=== PATIENT | female | born 1995 | race Caucasian/White ===

== ENCOUNTER 2020-08-11 09:49 | Inpatient (IN) ==
[2020-08-11] MEDS ORDERED: LORazepam 2 MG/4 ML VIAL IV STA (10:47)
[2020-08-11] MEDS ORDERED: KETOROLAC TROMETHAMINE 15 MG/ML VIAL IV STA (10:47)
[2020-08-11] MEDS ORDERED: cloNIDine HCL 0.1 MG TAB PO ONE (10:47)
[2020-08-11] MEDS ORDERED: PROMETHAZINE 12.5 MG/50.5 ML BAG IV STA (10:47)
[2020-08-11] MEDS ORDERED: SODIUM CHLORIDE 0.9% 1000ML 1,000 ML IV ONE (10:47)
--- NOTE | 2020-08-11 10:55 | Emergency Department Note ---
Impression & Plan Acute narcotic withdrawal, Anxiety, Hypokalemia, Vomiting ED Provider Note NAME: KATELYN HODGSON AGE: 25 SEX: F : 1995 ARRIVES VIA: Ambulance INFORMANT: [Patient] ED PROVIDER(S): [Teo East MD] CHIEF COMPLAINT: Withdrawal HISTORY OF PRESENT ILLNESS: The patient is a 25-year-old female who has a history of crack use and opiate use. She last used both on , 4 days ago. The patient states that 2 days ago, she began withdrawing. She has chest pain, she cannot sit still. She has abdominal pain, she is vomiting. She is anxious and upset. She has been to detox before and again is willing for detox. There has been no other concerns. She has not had cough. She has been in baseline health except for the withdrawal. She states that she decided to quit cold turkey. Of note, I was informed that the patient threatened to run out into traffic if not cared for for her symptoms. REVIEW OF SYSTEMS: See HPI for pertinent positives and negatives. A total of ten systems were reviewed and were otherwise negative. PMHx/PSHx: See Below SOCIAL HISTORY: See Below. PHYSICAL EXAM: GENERAL: Patient is in moderate distress, cannot sit still. Anxious. HEENT: No acute trauma, normocephalic atraumatic, mucous membranes moist, no na adrian congestion, no scleral icterus. NECK: No stridor, no adenopathy, no meningismus, trachea is midline. LUNGS: Clear to auscultation bilaterally, no wheeze, no rhonchi, breath sounds equal. HEART: Tachycardic, regular rhythm, no murmurs. ABDOMEN: Soft, nontender, bowel sounds positive, no hernias, no peritonitis. EXTREMITIES: No cyanosis or edema, full range of motion of all the joints without pain or difficulty, no signs for acute trauma. NEUROLOGIC: Oriented x 3, no acute motor or sensory deficits, no focal weakness. SKIN: No rash, no jaundice, no diaphoresis. Psychiatric: Cooperative, voluntary. Admits to withdrawing from what she thinks is opiates. Anxious. DIFFERENTIAL DIAGNOSIS: Mood disorder, infection, hypoglycemia, electrolyte abnormalities, cardiac sour margot, intracerebral event, toxicologic etiology, trauma, neurologic event, withdrawal, dehydration, as well as other pathologies. EMERGENCY DEPARTMENT COURSE/PROCEDURES: ECG: Indication was chest pain. ECG shows a normal sinus rhythm with some nonspecific ST changes diffusely. The rate is 60. The QTc is 434. There are no PVCs, no ST elevation. Continuous Cardiac Monitoring: An order was placed for continuous cardiac monitoring. The monitor shows a rate of 76 with normal sinus rhythm. Critical Care Note: I have personally spent 51 minutes of critical care time in the direct management of this patient. This includes bedside care, interpretation of diagnostic studies, and testing, discussion with consultants, patient, and family members, and other required patient management activities. This 51 minutes is in excess of all separately billable procedures. MEDICAL DECISION MAKING: There is a mild leukocytosis, this could be consistent with infection or just the stress of her presentation. There is a normal hemoglobin and platelet count. Renal panel testing shows a mild acidosis with a CO2 of 18. Potassium was low at 3. No kidney failure. No worrisome liver enzyme elevation. ECG showed a sinus rhythm with some nonspecific ST changes, no acute ischemia. Ca rdiac enzyme testing x1 is not consistent with acute cardiac injury. testing returned negative. The patient appeared to be in a euthyroid state. Urinalysis showed evidence for dehydration, some contamination was also noted. Aspirin and Tylenol levels were both nontoxic. Alcohol level was undetectable. Urine tox showed methadone, cocaine and marijuana. Chest x-ray does not show mediastinal widening, pneumonia or pneumothorax. The patient was quite uncomfortable and appeared to be going through narcotic withdrawal. She was aggressively managed. She received IV saline for hydr ation. She was given 1.5 L. She received IV Phenergan and IV Zofran. She required a second dose of IV Phenergan. She received IV Ativan 2 mg, a second dose of 1 mg IV was given. She was given IV Toradol for pain, IV Pepcid for stomach upset. She was ordered for oral clonidine and oral potassium however, she did vomit and I doubt truly received these medications. The patient is in need of a hospital stay. She is in narcotic withdrawal. She is vomiting. She is not tolerating oral intake. She has a low potassium. She is going to require symptomatic care and possibly rehab once stabilized. I spoke to the patient and case management. The on-call hospitalist has been consulted. 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 Non-Prescribed Medications: Crack / Cocaine, IV Drugs, Marijuana and Other Non-Prescribed Medications Comment: street fentanyl pills Preferred Language: Azeri marital status: Single Current Living Situation Comment: lives in [place] Feels Safe at Home: Yes Allergies Allergies Allergy/AdvReac Type Severity Reaction Status Date / Time No Known Allergies Allergy Unverified 02/08/16 17:08 Home Meds Home Medications Medication Instructions Recorded Confirmed BUPROPION HCL (WELLBUTRIN) PO QAM #0 tab 02/08/16 Clonazepam (Klonopin) 2 mg PO DAILY #0 tab 02/08/16 Results & Data (ED) Vital Signs Vital Signs - 24 hr 08/11/20 09:52 08/11/20 12:35 08/11/20 13:39 Temperature 36.9 C Temperature Source Temporal Artery Scan Pulse Rate 76 Pulse Rate [Apical] 70 68 Pulse Rhythm [Apical] Regular Respiratory Rate 18 16 16 Respiratory Effort / Characteristics Non-Labored Spontaneous Respiratory Depth Normal Blood Pressure [Left Arm] 89/50 L 102/56 L Blood Pressure Mean [Left Arm] 63 71 Blood Pressure Position [Left Arm] Left Lateral Pulse Oximetry 97 98 96 Oxygen Delivery Method Room Air Room Air Sepsis Recent Fever Within 48 Hours No Sepsis New/Unexplained Change in Mental Status N/A Sepsis Action Taken by Nursing No Action Required Home Medications Current Medication List: was personally reviewed by me Laboratory Data Attestation: I reviewed the patient's lab results. Result diagrams: 08/11/20 11:13 04/08/21 11:13 Lab Results 08/11/20 08/11/20 08/11/20 Range/Units 11:13 11:13 11:13 WBC 12.44 H (4.8-10.8) K/uL RBC 5.09 (4.2-5.4) M/uL Hgb 15.7 (12.0-16.0) g/dL Hct 43.6 (37-47) % MCV 85.7 (80-100) fL MCH 30.8 (25-34) pg MCHC 36.0 (32-36) g/dL RDW Std Deviation 39.7 (36.4-46.3) fL RDW Coeff of Liliana 12.7 (11.5-14.5) % Plt Count 297 (130-400) K/uL MPV 9.8 (7.4-10.4) fL Immature Gran % (Auto) 0.3 % Neut % (Auto) 88.3 % Lymph % (Auto) 9.0 % [place] % (Auto) 2.3 % Eos % (Auto) 0.0 % Baso % (Auto) 0.1 % Neut # (Auto) 10.99 H (1.4-6.5) K/uL Lymph # (Auto) 1.12 L (1.2-3.4) K/uL [place] # (Auto) 0.28 (0.11-0.59) K/uL Eos # (Auto) 0.00 (0-0.5) K/uL Baso # (Auto) 0.01 (0-0.2) K/uL Immature Gran # (Auto) 0.04 H (0.00-0.02) K/uL Sodium 139 (136-145) mmol/L Potassium 3.0 L (3.5-5.1) mmol/L Chloride 110 H (98-107) mmol/L Carbon Dioxide 18 L (21-32) mmol/L Anion Gap 11.0 (3-11) BUN 9 (7-18) mg/dl Creatinine 0.69 (0.6-1.2) mg/dl Est Cr Clr Drug Dosing 84.5 ml/min Est GFR ( Amer) 141.2 Est GFR (Non-Af Amer) 121.8 BUN/Creatinine Ratio 13.6 (10-20) Glucose 95 (70-99) mg/dl Calcium 9.2 (8.5-10.1) mg/dl Total Bilirubin 0.6 (0.2-1) mg/dl AST 14 L (15-37) U/L ALT 19 (12-78) U/L Alkaline Phosphatase 73 (45-117) U/L Total Protein 7.7 (6.4-8.2) gm/dl Albumin 4.5 (3.4-5.0) gm/dl Globulin 3.2 (2.5-4.0) gm/dl Albumin/Globulin Ratio 1.4 (0.9-2) TSH 0.338 (0.300-4.500) uIu/ml HCG, Qual Negative (Negative) Specimen Hemolysis Urine Color Urine Appearance (Clear) Urine pH (4.5-7.5) Ur Specific [place] (1.000-1.030) Urine Protein (Negative) Urine Glucose (UA) (Negative) Urine Ketones (Negative) Urine Blood (Negative) Urine Nitrite (Negative) Urine Bilirubin (Negative) Urine Urobilinogen (Negative) Ur Leukocyte Esterase (Negative) Urine WBC (Auto) (0-5) /hpf Urine RBC (Auto) (0-4) /hpf U Hyaline Cast (Auto) (0-5) /lpf U Epithel Cells (Auto) (0-5) /lpf Urine Bacteria (Auto) (Negative) Salicylates (2.8-20) mg/dl Urine Opiates Screen (Neg) Ur Methadone, Qual (Neg) Acetaminophen (10-30) ug/ml Urine Barbiturates (Neg) Ur Phencyclidine (PCP) (Neg) U Amphetamin/Meth Scrn (Neg) MDMA (Ecstasy) Screen (Neg) U Benzodiazepines Scrn (Neg) Ur Cocaine Metabolite (Neg) U Marijuana (THC) Screen (Neg) Ethyl Alcohol mg/dL (0-3) mg/dl COVID-19 Eval Order SARS-CoV-2 (PCR) (Negative) Influenza Type A (PCR) (Neg) Influenza Type B (PCR) (Neg) RSV (RT-PCR) (Neg) 08/11/20 08/11/20 08/11/20 Range/Units 11:13 11:14 11:57 WBC (4.8-10.8) K/uL RBC (4.2-5.4) M/uL Hgb (12.0-16.0) g/dL Hct (37-47) % MCV (80-100) fL MCH (25-34) pg MCHC (32-36) g/dL RDW Std Deviation (36.4-46.3) fL RDW Coeff of Liliana (11.5-14.5) % Plt Count (130-400) K/uL MPV (7.4-10.4) fL Immature Gran % (Auto) % Neut % (Auto) % Lymph % (Auto) % [place] % (Auto) % Eos % (Auto) % Baso % (Auto) % Neut # (Auto) (1.4-6.5) K/uL Lymph # (Auto) (1.2-3.4) K/uL [place] # (Auto) (0.11-0.59) K/uL Eos # (Auto) (0-0.5) K/uL Baso # (Auto) (0-0.2) K/uL Immature Gran # (Auto) (0.00-0.02) K/uL Sodium (136-145) mmol/L Potassium (3.5-5.1) mmol/L Chloride (98-107) mmol/L Carbon Dioxide (21-32) mmol/L Anion Gap (3-11) BUN (7-18) mg/dl Creatinine (0.6-1.2) mg/dl Est Cr Clr Drug Dosing ml/min Est GFR ( Amer) Est GFR (Non-Af Amer) BUN/Creatinine Ratio (10-20) Glucose (70-99) mg/dl Calcium (8.5-10.1) mg/dl Total Bilirubin (0.2-1) mg/dl AST (15-37) U/L ALT (12-78) U/L Alkaline Phosphatase (45-117) U/L Total Protein (6.4-8.2) gm/dl Albumin (3.4-5.0) gm/dl Globulin (2.5-4.0) gm/dl Albumin/Globulin Ratio (0.9-2) TSH (0.300-4.500) uIu/ml HCG, Qual (Negative) Specimen Hemolysis Urine Color Urine Appearance (Clear) Urine pH (4.5-7.5) Ur Specific [place] (1.000-1.030) Urine Protein (Negative) Urine Glucose (UA) (Negative) Urine Ketones (Negative) Urine Blood (Negative) Urine Nitrite (Negative) Urine Bilirubin (Negative) Urine Urobilinogen (Negative) Ur Leukocyte Esterase (Negative) Urine WBC (Auto) (0-5) /hpf Urine RBC (Auto) (0-4) /hpf U Hyaline Cast (Auto) (0-5) /lpf U Epithel Cells (Auto) (0-5) /lpf Urine Bacteria (Auto) (Negative) Salicylates 4.6 (2.8-20) mg/dl Urine Opiates Screen (Neg) Ur Methadone, Qual (Neg) Acetaminophen 11 (10-30) ug/ml Urine Barbiturates (Neg) Ur Phencyclidine (PCP) (Neg) U Amphetamin/Meth Scrn (Neg) MDMA (Ecstasy) Screen (Neg) U Benzodiazepines Scrn (Neg) Ur Cocaine Metabolite (Neg) U Marijuana (THC) Screen (Neg) Ethyl Alcohol mg/dL < 3.0 (0-3) mg/dl COVID-19 Eval Order CovFluRsv at [facility] SARS-CoV-2 (PCR) (Negative) Influenza Type A (PCR) (Neg) Influenza Type B (PCR) (Neg) RSV (RT-PCR) (Neg) 08/11/20 08/11/20 08/11/20 Range/Units 11:57 14:07 14:07 WBC (4.8-10.8) K/uL RBC (4.2-5.4) M/uL Hgb (12.0-16.0) g/dL Hct (37-47) % MCV (80-100) fL MCH (25-34) pg MCHC (32-36) g/dL RDW Std Deviation (36.4-46.3) fL RDW Coeff of Liliana (11.5-14.5) % Plt Count (130-400) K/uL MPV (7.4-10.4) fL Immature Gran % (Auto) % Neut % (Auto) % Lymph % (Auto) % [place] % (Auto) % Eos % (Auto) % Baso % (Auto) % Neut # (Auto) (1.4-6.5) K/uL Lymph # (Auto) (1.2-3.4) K/uL [place] # (Auto) (0.11-0.59) K/uL Eos # (Auto) (0-0.5) K/uL Baso # (Auto) (0-0.2) K/uL Immature Gran # (Auto) (0.00-0.02) K/uL Sodium (136-145) mmol/L Potassium (3.5-5.1) mmol/L Chloride (98-107) mmol/L Carbon Dioxide (21-32) mmol/L Anion Gap (3-11) BUN (7-18) mg/dl Creatinine (0.6-1.2) mg/dl Est Cr Clr Drug Dosing ml/min Est GFR ( Amer) Est GFR (Non-Af Amer) BUN/Creatinine Ratio (10-20) Glucose (70-99) mg/dl Calcium (8.5-10.1) mg/dl Total Bilirubin (0.2-1) mg/dl AST (15-37) U/L ALT (12-78) U/L Alkaline Phosphatase (45-117) U/L Total Protein (6.4-8.2) gm/dl Albumin (3.4-5.0) gm/dl Globulin (2.5-4.0) gm/dl Albumin/Globulin Ratio (0.9-2) TSH (0.300-4.500) uIu/ml HCG, Qual (Negative) Specimen Hemolysis Urine Color Yellow Urine Appearance Cloudy A (Clear) Urine pH 5.5 (4.5-7.5) Ur Specific [place] 1.035 H (1.000-1.030) Urine Protein 1+ H (Negative) Urine Glucose (UA) Negative (Negative) Urine Ketones 4+ H (Negative) Urine Blood 1+ H (Negative) Urine Nitrite Negative (Negative) Urine Bilirubin Negative (Negative) Urine Urobilinogen Negative (Negative) Ur Leukocyte Esterase 2+ H (Negative) Urine WBC (Auto) >30 H (0-5) /hpf Urine RBC (Auto) 5-10 H (0-4) /hpf U Hyaline Cast (Auto) 5-10 H (0-5) /lpf U Epithel Cells (Auto) >30 H (0-5) /lpf Urine Bacteria (Auto) 2+ H (Negative) Salicylates (2.8-20) mg/dl Urine Opiates Screen Neg (Neg) Ur Methadone, Qual Pos H (Neg) Acetaminophen (10-30) ug/ml Urine Barbiturates Neg (Neg) Ur Phencyclidine (PCP) Neg (Neg) U Amphetamin/Meth Scrn Neg (Neg) MDMA (Ecstasy) Screen Neg (Neg) U Benzodiazepines Scrn Neg (Neg) Ur Cocaine Metabolite Pos H (Neg) U Marijuana (THC) Screen Pos H (Neg) Ethyl Alcohol mg/dL (0-3) mg/dl COVID-19 Eval Order SARS-CoV-2 (PCR) NEGATIVE (Negative) Influenza Type A (PCR) Negative (Neg) Influenza Type B (PCR) Negative (Neg) RSV (RT-PCR) Negative (Neg) Administered Medications Discontinued Medications Clonidine HCl (Clonidine Hcl 0.1 Mg Tab) 0.2 mg PO NOW ONE Stop: 08/11/20 10:48 Last Admin: 08/11/20 11:30 Dose: 0.2 mg Documented by: [id number] Promethazine HCl (Phenergan) 12.5 mg in 50.5 mls @ 202 mls/hr IV NOW STA Stop: 08/11/20 11:01 Last Infusion: 08/11/20 11:52 Dose: 0 mls/hr Documented by: [id number] Admin: 08/11/20 11:30 Dose: 202 mls/hr Documented by: [id number] Lorazepam (Ativan) 2 mg in 4 mls @ 4 mls/min IV NOW STA Stop: 08/11/20 10:48 Last Admin: 08/11/20 11:30 Dose: 4 mls/min Documented by: [id number] Sodium Chloride (Nss 1000ml) 1,000 mls @ 999 mls/hr IV .Q1H1M ONE Stop: 08/11/20 11:47 Last Infusion: 08/11/20 12:46 Dose: 0 mls/hr Documented by: [id number] Admin: 08/11/20 11:30 Dose: 999 mls/hr Documented by: [id number] Sodium Chloride (Nss 1000ml) 500 mls @ 999 mls/hr IV .Q31M ONE Stop: 08/11/20 12:47 Last Infusion: 08/11/20 12:55 Dose: 0 mls/hr Documented by: [id number] Admin: 08/11/20 12:21 Dose: 999 mls/hr Documented by: [id number] Promethazine HCl (Phenergan) 6.25 mg in 50.25 mls @ 201 mls/hr IV NOW STA Stop: 08/11/20 12:40 Last Infusion: 08/11/20 12:46 Dose: 0 mls/hr Documented by: [id number] Admin: 08/11/20 12:30 Dose: 201 mls/hr Documented by: [id number] Potassium Chloride (K Mani / Wtr) 10 meq in 100 mls @ 100 mls/hr IV ONE ONE Stop: 08/11/20 13:25 Last Infusion: 08/11/20 14:18 Dose: 0 mls/hr Documented by: [id number] Infusion: 08/11/20 13:16 Dose: 50 mls/hr Documented by: [id number] Admin: 08/11/20 12:46 Dose: 100 mls/hr Documented by: [id number] Ketorolac Tromethamine (Ketorolac Tromethamine 15 Mg/Ml Vial) 15 mg IV NOW STA Stop: 08/11/20 10:48 Last Admin: 08/11/20 11:30 Dose: 15 mg Documented by: [id number] Methadone HCl (Methadone Hcl 10 Mg Tab) 100 mg PO NOW STA Stop: 08/11/20 15:15 Last Admin: 08/11/20 16:07 Dose: 100 mg Documented by: [id number] Ondansetron HCl (Ondansetron Inj 2 Mg/Ml 2 Ml Vial) 4 mg IV NOW STA Stop: 08/11/20 12:27 Last Admin: 08/11/20 12:29 Dose: 4 mg Documented by: [id number] Potassium Chloride (Potassium Chloride Crtab 20 Meq Tabcr) 40 meq PO NOW STA Stop: 08/11/20 11:57 Last Admin: 08/11/20 12:07 Dose: 40 meq Documented by: [id number] Imaging Data Radiologist's Impression: Chest X-Ray 08/11/20 10:50 XR chest 1V portable CLINICAL HISTORY: Chest pain. COMPARISON STUDY: No previous studies for comparison. FINDINGS: Lung volumes are normal. Lungs are clear. There is no pneumothorax or pleural effusion. Cardiac size is normal. Mediastinal contours are normal. There is no evidence for pulmonary edema. IMPRESSION: No acute cardiopulmonary findings. ACT 112: Negative or not required by law. Electronically signed by: Richard Hallman M.D. 08/11/2020 11:21 AM Discharge Plan Visit Data Chief Complaint: Detox Request ED Provider: Teo East Discharge Problem: Acute narcotic withdrawal, Anxiety, Hypokalemia, Vomiting Patient Disposition: Admitted As Inpatient Condition: Fair Discharge Problem: Vomiting Qualifiers: Vomiting type: unspecified Vomiting Intractability: non-intractable Nausea presence: with nausea Qualified Code(s): R11.2 - Nausea with vomiting, unspecified
--- NOTE | 2020-08-11 11:23 | XRay Report ---
XR chest 1V portable CLINICAL HISTORY: Chest pain. COMPARISON STUDY: No previous studies for comparison. FINDINGS: Lung volumes are normal. Lungs are clear. There is no pneumothorax or pleural effusion. Car diac size is normal. Mediastinal contours are normal. There is no evidence for pulmonary edema. IMPRESSION: No acute cardiopulmonary findings. ACT 112: Negative or not required by law. Electronically signed by: Richard Hallman M.D. 08/11/2020 11:21 AM
[2020-08-11 11:26] LABS: Basophils # (auto) 0.01 K/uL (0-0.2); Basophils % (auto) 0.1 %; Hematocrit (blood only) 43.6 % (37-47); Hemoglobin 15.7 g/dL (12.0-16.0); Immature Granulocytes # (auto) 0.04 K/uL (0.00-0.02); Immature Granulocytes % (auto) 0.3 %; Lymphocytes # (auto) 1.12 K/uL (1.2-3.4); Mean Corpuscular Hemoglobin 30.8 pg (25-34); Mean Corpuscular Volume 85.7 fL (80-100); Mean Platelet Volume 9.8 fL (7.4-10.4); Monocytes # (auto) 0.28 K/uL (0.11-0.59); Monocytes % (auto) 2.3 %; Neutrophils # (auto) 10.99 K/uL (1.4-6.5); Neutrophils % (auto) 88.3 %; Platelet Count 297 K/uL (130-400); RDW Coefficient of Variation 12.7 % (11.5-14.5); RDW Standard Deviation 39.7 fL (36.4-46.3); Red Blood Count 5.09 M/uL (4.2-5.4); White Blood Count 12.44 K/uL (4.8-10.8)
[2020-08-11 11:47] LABS: Pregnancy Test, Serum Negative (Negative)
[2020-08-11 11:54] LABS: Albumin Level 4.5 gm/dl (3.4-5.0); BUN Creatinine Ratio 13.6 (10-20); Calcium 9.2 mg/dl (8.5-10.1); Creatinine Clr Calc Pharmacy 84.5 ml/min; Est GFR (African American) 141.2; Est GFR (Non-African American) 121.8
[2020-08-11 11:56] LABS: Salicylate 4.6 mg/dl (2.8-20)
[2020-08-11] MEDS ORDERED: POTASSIUM CHLORIDE CRTAB 20 MEQ TABCR PO STA (11:56)
[2020-08-11 12:00] LABS: Albumin Globulin Ratio 1.4 (0.9-2); Bilirubin,Total 0.6 mg/dl (0.2-1); Globulin 3.2 gm/dl (2.5-4.0); Thyroid Stimulating Hormone 0.338 uIu/ml (0.300-4.500); Total Protein 7.7 gm/dl (6.4-8.2)
[2020-08-11] MEDS ORDERED: SODIUM CHLORIDE 0.9% 1000ML 500 ML IV ONE (12:17)
[2020-08-11] MEDS ORDERED: POTASSIUM CHLORIDE / WTR 10 MEQ/100 ML PLCT IV ONE (12:26)
[2020-08-11] MEDS ORDERED: ONDANSETRON INJ 2 MG/ML 2 ML VIAL IV STA (12:26)
[2020-08-11] MEDS ORDERED: PROMETHAZINE 6.25 MG/50.25 ML BAG IV STA (12:26)
[2020-08-11 12:55] LABS: Influenza A virus by PCR Negative (Neg); Influenza B virus by PCR Negative (Neg); RSV by PCR Negative (Neg); SARS CoV2 RNA(COVID-19) InHosp NEGATIVE (Negative)
--- NOTE | 2020-08-11 13:27 | History & Physical Report ---
Date of Service August 11, 2020 Assessment & Plan (1) Narcotic withdrawal: Patient [facility] with [facility] called Felice Quintero MD ([phone]). I called and spoke with the office; they confirmed that the patient began methadone Rx in 10/2019. She indeed is on 100mg/day. On 08/04/20 she received 100mg in the clinic. She was then given 4 doses of 100mg each to take for the following 4 days. She stopped her methadone this past Saturday. During the visit she stated she wished to go back on the methadone and stop her withdrawal. Methadone 100mg PO x 1 ordered shortly after my assessment. Then will continue 100mg daily starting in am. I spoke with our on-call painter who recommended the above. It will take several days for all withdrawal symptoms to resolve. In meantime - loperamide prn diarrhea, anti-emetics, clonidine prn, etc. She is also purchasing fentanyl off the streets in [place]. (2) Methadone maintenance therapy patient: see above (3) Fentanyl dependence: Illicit fentanyl use - purchasing fentanyl off the street and taking daily. She previously misused oxycodone several years ago when she had significant pain related to her endometriosis. (4) Cocaine abuse: Crack use, daily. Last use was this past Saturday. She previously used IV drugs up until September 2019. IV heroin? IV cocaine? Other? (5) History of marijuana use: Tox screen here + for THC along with cocaine (6) Depression: In light of suicidal ideation will place on suicide watch and 1:1. Psych consult requested. I called and spoke with psych liaison regarding the patient. Hold wellbutrin - dose uncertain. Cont klonipin to avoid withdrawal. (7) Endometriosis: s/p multiple laparoscopies in the past. Used narcotics for pelvic pain related to endometriosis several years ago. Urine HCG neg. LMP several days ago. (8) Anxiety: Severe. Received ativan in ER prior to my arrival. Place her back on her klonipin daily. (9) Chest pain: EKG is concerning given her cocaine abuse. She could be having ischemia from the cocaine. Troponin checked and negative. Will obtain echo - r/o depressed EF, wall motion abnormalities, etc. Place on telemetry. (10) Hypokalemia: Replaced in ER. Repeat BMP am. (11) Abnormal EKG: Diffuse ST segment flattening. See "Chest pain" above. (12) Hx of intravenous drug use in remission: None since 09/2019 per patient. History of Present Illness Chief Complaint: narcotic withdrawal Primary Care Provider: ARTUR PCP 25yo female with h/o previous IV drug abuse, stopped in September 2019; methadone maintenance with 100mg/day since September 2019 - follows with [facility] in [place]; daily crack-cocaine abuse; daily fentanyl use obtained from the street; anxiety; depression; and endometriosis who presents with withdrawal symptoms starting Saturday. Patient had received numerous medications for her symptoms upon ED arrival and she was very lethargic making it difficult to get history. However, she was able to tell me that her last cocaine use was Saturday night, and last methadone/fentanyl use was Saturday on . She said that she has been depressed and realized that she would ultimately from the drug abuse and therefore decided to stop everything. Since Saturday she has had nausea, vomiting, poor appetite, chills/goose bumps/feeling cold, myalgias, restlessness, agitation, diarrhea, and anxiety. She states she wants to stop the street drugs but wishes to continue the methadone. States that suboxone "made her sick" and doesn't want to go on this. Started abusing narcotics when she was being treated for her severe endometriosis in the past. LMP - 3 days ago. Lastly, I asked Teresita if she has ever been diagnosed with bipolar disorder or other mental health problems. She reported diagnoses of depression & anxiety. When asked if she has had suicidal ideation she responded yes. Asked if those suicidal thoughts were recent again she responded yes. She would not elaborate further on the suicidal thoughts. Allergies Allergy/AdvReac Type Severity Reaction Status Date / Time No Known Allergies Allergy Unverified 02/08/16 17:08 Home Medications Medication Instructions Recorded Confirmed Type BUPROPION HCL (WELLBUTRIN) PO QAM #0 tab 02/08/16 History Clonazepam (Klonopin) 2 mg PO DAILY #0 tab 02/08/16 History Past Med/Surg History Medical History Anxiety Cocaine abuse Depression Endometriosis Fentanyl dependence History of marijuana use Hx of intravenous drug use in remission Methadone maintenance therapy patient Narcotic withdrawal Surgical History (Updated 08/11/20 @ 14:08 by Emery Larkin) History of laparoscopy x 4 for endometriosis Family History (Updated 08/11/20 @ 14:09 by Emery Larkin) Other Family history unknown Social History Smoking Status: Current every day smoker Tobacco Type: Cigarettes packs per day: 1; Do You Dip or Chew Tobacco: No; Tobacco Cessation Education Requested by Patient: No Hx Alcohol Use: No Hx Substance Use: Yes Prescribed Medications: Former Misuse of Rx Meds, Opiates and Other Prescribed Medications Comment: methadone, 100mg/day - [facility] Methadone [facility] - [place]. Non-Prescribed Medications: Crack / Cocaine, IV Drugs, Marijuana and Other Non-Prescribed Medications Comment: street fentanyl pills Last Used Substance: Days (ago) Last Used Substance Other:: 08/07/2020 Substance Use Type Other:: fentanyl Preferred Language: [place] Leone[place] Dock Worker Required: No Beliefs That Will Affect Care: None marital status: Single Current Living Situation: Parent Current Living Situation Comment: lives in [place] Other Information That Helps Us Care for You: No Feels Safe at Home: Yes Safety Concerns: Feels Safe At This Time Assistive Devices: Glasses Review of Systems Constitutional: + chills, + sweats, + body aches, + fatigue and + anorexia; no fever Eyes: no worsening vision Ear, Nose, Mouth, Throat: no sore throat Respiratory: no dyspnea Cardiovascular: + chest pain (occured today and several days ago ) Gastrointestinal: + abdominal pain, + nausea, + vomiting and + diarrhea/loose stools Genitourinary: no dysuria Musculoskeletal: + myalgia and + body aches Integumentary: no rash Neurologic: + tingling Psychiatric: + depression and + anxiety Endocrine: denies diabetes Physical Exam Constitutional: + ill appearing and + altered mental status (very sleepy, difficult to wake her); no acute distress Eyes: PERRL (pupils about 3-4mm in size) ENMT: Mouth: + dry oral mucous membranes Neck: trachea midline, no thyromegaly Respiratory: normal respiratory effort, lungs clear to auscultation Cardiovascular: Rate/Rhythm: regular rate and regular rhythm Heart Sounds: normal S1 and normal S2; no murmur Vessels: posterior tibial pulses present and dorsalis pedis pulses present; no JVD Extremities: no edema Gastrointestinal (Abdomen): normal bowel sounds, soft, nontender, no hepatospl enomegaly Musculoskeletal: Extremities: no clubbing Skin: very sweaty/diaphoresis; multiple tattoos Neurologic: DTRs 3+ b/l; restless, constantly shifting in bed; no motor deficits Psychiatric: Orientation: + not alert (sleepy, sometimes takes calling her name 2-3x's to wake up ) Lymphatic: no cervical lymphadenopathy Results & Data Results & Data ([facility]) Vital Signs (Past 12 Hours) Vital Signs Temp Pulse Pulse Resp BP Pulse Ox 08/11/20 12:35 70 16 89/50 L 98 08/11/20 09:52 36.9 C 76 18 97 Laboratory Results Laboratory Results - last 24 hr 08/11/20 08/11/20 08/11/20 11:13 11:13 11:13 WBC 12.44 H RBC 5.09 Hgb 15.7 Hct 43.6 MCV 85.7 MCH 30.8 MCHC 36.0 RDW Std Deviation 39.7 RDW Coeff of Liliana 12.7 Plt Count 297 MPV 9.8 Immature Gran % (Auto) 0.3 Neut % (Auto) 88.3 Lymph % (Auto) 9.0 [place] % (Auto) 2.3 Eos % (Auto) 0.0 Baso % (Auto) 0.1 Neut # (Auto) 10.99 H Lymph # (Auto) 1.12 L [place] # (Auto) 0.28 Eos # (Auto) 0.00 Baso # (Auto) 0.01 Immature Gran # (Auto) 0.04 H Sodium 139 Potassium 3.0 L Chloride 110 H Carbon Dioxide 18 L Anion Gap 11.0 BUN 9 Creatinine 0.69 Est Cr Clr Drug Dosing 84.5 Est GFR ( Amer) 141.2 Est GFR (Non-Af Amer) 121.8 BUN/Creatinine Ratio 13.6 Glucose 95 Calcium 9.2 Total Bilirubin 0.6 AST 14 L ALT 19 Alkaline Phosphatase 73 Total Protein 7.7 Albumin 4.5 Globulin 3.2 Albumin/Globulin Ratio 1.4 TSH 0.338 HCG, Qual Negative Specimen Hemolysis Urine Color Urine Appearance Urine pH Ur Specific [place] Urine Protein Urine Glucose (UA) Urine Ketones Urine Blood Urine Nitrite Urine Bilirubin Urine Urobilinogen Ur Leukocyte Esterase Salicylates Urine Opiates Screen Ur Methadone, Qual Acetaminophen Urine Barbiturates Ur Phencyclidine (PCP) U Amphetamin/Meth Scrn MDMA (Ecstasy) Screen U Benzodiazepines Scrn Ur Cocaine Metabolite U Marijuana (THC) Screen Ethyl Alcohol mg/dL COVID-19 Eval Order SARS-CoV-2 (PCR) Influenza Type A (PCR) Influenza Type B (PCR) RSV (RT-PCR) 08/11/20 08/11/20 08/11/20 11:13 11:14 11:57 WBC RBC Hgb Hct MCV MCH MCHC RDW Std Deviation RDW Coeff of Liliana Plt Count MPV Immature Gran % (Auto) Neut % (Auto) Lymph % (Auto) [place] % (Auto) Eos % (Auto) Baso % (Auto) Neut # (Auto) Lymph # (Auto) [place] # (Auto) Eos # (Auto) Baso # (Auto) Immature Gran # (Auto) Sodium Potassium Chloride Carbon Dioxide Anion Gap BUN Creatinine Est Cr Clr Drug Dosing Est GFR ( Amer) Est GFR (Non-Af Amer) BUN/Creatinine Ratio Glucose Calcium Total Bilirubin AST ALT Alkaline Phosphatase Total Protein Albumin Globulin Albumin/Globulin Ratio TSH HCG, Qual Specimen Hemolysis Urine Color Urine Appearance Urine pH Ur Specific [place] Urine Protein Urine Glucose (UA) Urine Ketones Urine Blood Urine Nitrite Urine Bilirubin Urine Urobilinogen Ur Leukocyte Esterase Salicylates 4.6 Urine Opiates Screen Ur Methadone, Qual Acetaminophen 11 Urine Barbiturates Ur Phencyclidine (PCP) U Amphetamin/Meth Scrn MDMA (Ecstasy) Screen U Benzodiazepines Scrn Ur Cocaine Metabolite U Marijuana (THC) Screen Ethyl Alcohol mg/dL < 3.0 COVID-19 Eval Order CovFluRsv at [facility] SARS-CoV-2 (PCR) Influenza Type A (PCR) Influenza Type B (PCR) RSV (RT-PCR) 08/11/20 08/11/20 08/11/20 11:57 14:07 14:07 WBC RBC Hgb Hct MCV MCH MCHC RDW Std Deviation RDW Coeff of Liliana Plt Count MPV Immature Gran % (Auto) Neut % (Auto) Lymph % (Auto) [place] % (Auto) Eos % (Auto) Baso % (Auto) Neut # (Auto) Lymph # (Auto) [place] # (Auto) Eos # (Auto) Baso # (Auto) Immature Gran # (Auto) Sodium Potassium Chloride Carbon Dioxide Anion Gap BUN Creatinine Est Cr Clr Drug Dosing Est GFR ( Amer) Est GFR (Non-Af Amer) BUN/Creatinine Ratio Glucose Calcium Total Bilirubin AST ALT Alkaline Phosphatase Total Protein Albumin Globulin Albumin/Globulin Ratio TSH HCG, Qual Specimen Hemolysis Urine Color Pending Urine Appearance Pending Urine pH Pending Ur Specific [place] Pending Urine Protein Pending Urine Glucose (UA) Pending Urine Ketones Pending Urine Blood Pending Urine Nitrite Pending Urine Bilirubin Pending Urine Urobilinogen Pending Ur Leukocyte Esterase Pending Salicylates Urine Opiates Screen Pending Ur Methadone, Qual Pending Acetaminophen Urine Barbiturates Pending Ur Phencyclidine (PCP) Pending U Amphetamin/Meth Scrn Pending MDMA (Ecstasy) Screen Pending U Benzodiazepines Scrn Pending Ur Cocaine Metabolite Pending U Marijuana (THC) Screen Pending Ethyl Alcohol mg/dL COVID-19 Eval Order SARS-CoV-2 (PCR) NEGATIVE Influenza Type A (PCR) Negative Influenza Type B (PCR) Negative RSV (RT-PCR) Negative Diagnostic Findings Chest X-Ray 08/11/20 10:50 XR chest 1V portable CLINICAL HISTORY: Chest pain. COMPARISON STUDY: No previous studies for comparison. FINDINGS: Lung volumes are normal. Lungs are clear. There is no pneumothorax or pleural effusion. Cardiac size is normal. Mediastinal contours are normal. There is no evidence for pulmonary edema. IMPRESSION: No acute cardiopulmonary findings. ACT 112: Negative or not required by law. Electronically signed by: Richard Hallman M.D. 08/11/2020 11:21 AM EKG - NSR, diffuse ST segment flattening or decreased amplitude in inferior leads and anterior leads; no prior for comparison PG Care Time/CCT Total # of Minutes Spent Total Time Spent with Patient: Total time spent is greater than 50% in c oordination of care (as documented) at patient's floor/unit and/or counseling patient: Coding Level of Care Code 93804 Initial Inpt Care Lvl 3 Diagnoses Narcotic withdrawal F11.23 Methadone maintenance therapy patient F11.20 Fentanyl dependence F11.20 Cocaine abuse F14.10 History of marijuana use Z87.898 Depression F32.89 Depression Type: other depression Endometriosis N80.9 Anxiety F41.9 Chest pain R07.9 Chest pain type: unspecified Hypokalemia E87.6 Abnormal EKG R94.31 Hx of intravenous drug use in remission Z87.898 (1) Depression Depression Type: other depression Qualified Code(s): F32.89 - Other specified depressive episodes (2) Chest pain Chest pain type: unspecified Qualified Code(s): R07.9 - Chest pain, unspecified
[2020-08-11] MEDS ORDERED: METHADONE HCL 5 MG TAB PO STA (14:28)
[2020-08-11 14:36] LABS: Amphetamines+Metham, Urine Neg (Neg); Barbiturates, Urine Neg (Neg); Benzodiazepine, Urine Neg (Neg); Cocaine, Urine Pos (Neg); MDMA (Ecstacy), Urine Neg (Neg); Methadone, Urine Pos (Neg); Opiate, Urine Neg (Neg); Phencyclidine, Urine Neg (Neg)
[2020-08-11 14:40] LABS: Appearance Urine Cloudy (Clear); Bacteria Urine Automated 2+ (Negative); Bilirubin Urine Negative (Negative); Blood Urine 1+ (Negative); Color Urine Yellow; Epithelial Cell Urine Auto >30 /lpf (0-5); Glucose Urine UA Negative (Negative); Ketones Urine 4+ (Negative); Leukocyte Esterase Urine 2+ (Negative); Nitrite Urine Negative (Negative); Protein Urine 1+ (Negative); Specific Gravity Urine 1.035 (1.000-1.030); Urobilinogen Urine Negative (Negative); WBC Urine Automated >30 /hpf (0-5); pH Urine 5.5 (4.5-7.5)
[2020-08-11 15:03] LABS: Troponin I < 0.015 ng/ml (0-0.045)
[2020-08-11] MEDS ORDERED: METHADONE HCL 10 MG TAB PO STA (15:14)
--- NOTE | 2020-08-11 16:01 | Electrocardiogram Report ---
Test Reason : Blood Pressure : / mmHG Vent. Rate : 060 BPM Atrial Rate : 060 BPM P-R Int : 134 ms QRS Dur : 088 ms QT Int : 434 ms P-R-T Axes : 038 032 024 degrees QTc Int : 434 ms Normal sinus rhythm Nonspecific T wave abnormality Abnormal ECG No previous ECGs available Confirmed by Philip Lane ([id number]) on 08/11/2020 4:01:31 PM Referred By: REFERRED SELF Confirmed By:Philip Lane
[2020-08-11] MEDS ORDERED: FAMOTIDINE 20MG IV PUSH 20 MG/5 ML SYR IV STA (18:12)
[2020-08-11] MEDS ORDERED: LORazepam 1 MG/2 ML VIAL IV STA (18:12)
[2020-08-11] MEDS: NICOTINE 21 MG/24 HR TDSY TD SCH (19:25)
[2020-08-11] MEDS ORDERED: LOPERAMIDE HCL 2 MG CAP PO PRN (22:53)
[2020-08-11] MEDS ORDERED: ACETAMINOPHEN 325 MG TAB PO PRN (22:53)
[2020-08-11] MEDS ORDERED: ONDANSETRON INJ 2 MG/ML 2 ML VIAL IV PRN (22:53)
[2020-08-11] MEDS ORDERED: cefTRIAXone SODIUM 1,000 MG in DEXTROSE 5% 50 ML IV SCH (23:00)
[2020-08-11] MEDS ORDERED: D5NSS + 20MEQ KCL 20 MEQ/1,000 ML BAG IV SCH (23:00)
[2020-08-12] MEDS ORDERED: LORazepam 1 MG/2 ML VIAL IV PRN (00:11)
[2020-08-12] MEDS ORDERED: KETOROLAC TROMETHAMINE 15 MG/ML VIAL IV PRN (00:35)
[2020-08-12] MEDS ORDERED: traZODone HCL 50 MG TAB PO PRN (00:55)
[2020-08-12 06:53] LABS: BUN Creatinine Ratio 9.5 (10-20); Calcium 8.2 mg/dl (8.5-10.1); Creatinine Clr Calc Pharmacy 97.5 ml/min; Est GFR (African American) 146.3; Est GFR (Non-African American) 126.2; Potassium 3.5 mmol/L (3.5-5.1)
[2020-08-12] MEDS: NICOTINE 21 MG/24 HR TDSY TD SCH (08:24)
[2020-08-12] MEDS ORDERED: METHADONE HCL 10 MG TAB PO SCH (09:00)
[2020-08-12] MEDS ORDERED: METHADONE HCL 5 MG TAB PO SCH (09:00)
[2020-08-12] MEDS ORDERED: clonazePAM 1 MG TAB PO SCH (09:00)
--- NOTE | 2020-08-12 09:48 | XCELERA ---
[id number]
--- NOTE | 2020-08-12 09:57 | Communication Note ---
Date of Service: August 12, 2020 The patient was seen today in [id number] evaluation by the undersigned. The patient acknowledges that she had altered a threat of running in front of a bus, but explains that the context was that she was "withdrawing bad" from fentanyl and methadone, and she is also recently used cocaine. She notes that today her withdrawal symptoms have improved significantly and she convincingly states that she has no intention of running in front of a bus and reiterates that the threat was made in anger. On mental status examination, the patient was found sitting up in bed on 2 S. she showed me that she was in the process of securing a place in a residential treatment program, and said that she is now hoping to go back to [place] and then travel to the [facility] to enter a program that has been recommended there for chemical dependency treatment. The patient was appropriately groomed and dressed in hospital gown. She was also fully coopera tive with the assessment her speech was delivered at a normal rate and rhythm and was spontaneous. The patient's thought processes demonstrated tight associations and were goal-directed. The patient describes her mood as "much better," and her affect was generally bright, but possibly somewhat angry underneath. The patient's thought content was devoid of any psychotic features. She reports that she is not experiencing any perceptual disturbances. As above, the patient reports that she is not experiencing any thoughts of suicide and insists that although she realizes she had said that she "felt like running out in front of a bus" prior to admission, this was triggered by a combination of irritation with an evaluating healthcare professional and the fact that she was in active withdrawal from opioids. Patient also is future oriented and tells us that her goal is to get back into a methadone maintenance program and complete residential chemical dependency treatment, with a long-term goal of maintaining complete abstinence from illicit chemical substances. The patient also reports that she is not experiencing any thoughts of causing physical harm to the person or property of others. Her judgment and insight appear to both be at least fair at this point. Her intelligence is estimated to be average. The patient expresses an eagerness to return to her home in [place], [place]. Finding: It is my finding that the patient no longer meets criteria for involuntary civil commitment and that she does not require inpatient psychiatric hospitalization. I endorsed her plan to achieve and maintain abstinence from chemical substance through participation in a methadone maintenance program as well as undergoing residential chemical dependency treatment, and intervention that she is in the process of personally arranging. Once cleared medically, the patient may be safely and appropriately released from the hospital in order to continue treatment on an outpatient basis.
--- NOTE | 2020-08-12 10:16 | Psychiatric Consultation ---
Date of Consultation August 12, 2020 Impression / Recommendations Impression Dr. Ab Moralez was directly involved in review and discussion of the patient's case and participated in medical decision making regarding treatment recommendations. RECOMMENDATIONS: 08/12/20 - Psychiatric consultation requested by our hospitalist service to evaluate patient. She was admitted on a 302 warrant due to verbalizing suicidal statements in the setting of polysubstance withdrawal. - Pt was initially evaluated in conjunction with Dr. Moralez, who will sign off to overturn the 302 warrant. Pt is requesting discharge to pursue follow-up with her methadone clinic and then subsequently detox facilities for long-term inpatient D&A treatment. Pt is future oriented and actively calling to make these arrangements. She is denying SI at this time, stating the statements were made out of frustration due to discomfort with withdrawal symptoms and the perception she was being mistreated by staff at the [facility] prior to being brought to the ED by EMS. Pt denies SI/HI, A/V hallucinations, paranoia, delusions and any safety concerns that would meet criteria for involuntary psychiatric commitment. She verbalized a safety plan, was willing for communication with her methadone clinic, and was cooperative and forthcoming during interview. Pt reports motivation to follow up with a detox facility and will be returning to [place] to her father initially, and then back to [place] with her mother until admission to a detox/rehab facility can be arranged. - Pt states she was not on any psychiatric medications prior to her admission. She would like to resume outpatient psychiatric treatment at some point in the future, but is currently motivated to address her substance abuse first. This plan certainly seems appropriate for the time being. Would not suggest that patient be discharged on any controlled substance due to active substance abuse behavior. - Appreciate the opportunity to participate in the care of this patient. Please reach out to our service with any additional questions or updates. Pt did sign an JEFFREY to allow coordination of care with her methadone clinic, and psychiatric consultation will be faxed to them at her request. (1) Polysubstance abuse: Risk Factors Assessment Do You Have Access To A Gun?: No Psych History Identifying Data 25-year-old female admitted medically on 08/11/20 after presenting to the ED via EMS on a 302 warrant. Pt admitted to withdrawing from several substances and had made a suicidal statement. Psychiatric consultation requested by our hospitalist service to evaluate patient for suicidality, substance abuse. Chief Complaint "Um, I said that because I was withdrawing." History of Present Illness Teresita Saini is a 25-year-old female admitted medically on 08/11/20 after presenting to the ED via EMS on a 302 warrant. Pt had reported history of polysubstance abuse, most recently "Fentanyl, Crack and Methadone." She is from [place], but reportedly had been staying with her father in [place] for assistance with detox. It was reported that patient had difficulty with worsening withdrawal symptoms and sought assistance with request for detox at the [facility]. [facility] hot worker completed 302 petitioning statement, and patient was brought to the ED on a warrant by EMS for detox. 302 reads: "Teresita is currently withdrawing from methadone (100mg daily) and Fentanyl ($100/day) with her last use being on 08/07/20. Teresita stated her chest hurt then stated her whole body has hurt for the past two days. At one point she was laying on the bathroom floor. Teresita informed this workers compensation administrator she wants to run into traffic. She would neither confirm or deny she would act on this." Received notification from staff that patient had been actively working to arrange her next level of treatment and was requesting discharge to allow her to be re-established with her methadone clinic and pursue D&A treatment. This provider met with the patient initially in conjunction with supervising psychiatrist, who reported plan to overturn 302 warrant (as criteria was based almost entirely on substance abuse symptoms, and patient is now denying SI). Pt did admit that she was feeling uncomfortable physically "I was withdrawing really bad from Fentanyl, crack and methadone." She states that she reached out for assistance with detox, but perceived that staff at the [facility] were inattentive to her needs. Pt admits that she made statements suggesting she would run into traffic, but did not act on these statements, nor does she intent to do so. Pt denies current SI and any other acute safety concerns. She informs this provider that she has arranged a ride to get back to her father's house in [place], and he will be assisting with transportation back to [place]. From there, she is hopeful for admission into a detox/rehab facility (currently looking at a facility in [place]). Pt was forthcoming with information and was future oriented during our conversation. Pt agreed to sign an JEFFREY for her methadone clinic and permitted that records be faxed for coordination of care. Pt denied other concerns for our service and admitted to feeling safe and comfortable with the discharge plans she has arranged. Pt was able to review a safety plan and admitted to feeling comfortable reaching out to crisis services if necessary. See supervising physician's communication report for supplemental details regarding today's evaluation. Past Psychiatric History Current Psychiatric Diagnosis: polysubstance abuse Outpatient Services: Pt had been seen at a Methadone clinic in [place] - [facility] in [place] Do You Have Access To A Gun?: No Past Medication Trials: "I've been on everything you could think of at one point or another." Allergies Allergy/AdvReac Type Severity Reaction Status Date / Time No Known Allergies Allergy Unverified 02/08/16 17:08 Substance Abuse History Admits to recent daily use of crack cocaine, last use 08/06/20. Daily use of Fentanyl, last use 08/07, and history of IV drug use as recently as 09/2019. Pt states that she also receives methadone. Pt reporting desire for detox and D&A treatment. Personal History Living Arrangements: Home (in [place] - had been brought to [facility] by dad for detox assistance) Marital Status: Single Patient History Medical History Anxiety Cocaine abuse Depression Endometriosis Fentanyl dependence History of marijuana use Hx of intravenous drug use in remission Methadone maintenance therapy patient Narcotic withdrawal Surgical History History of laparoscopy x 4 for endometriosis Family History Other Family history unknown Social History Smoking Status: Current every day smoker Tobacco Type: Cigarettes packs per day: 1; Do You Dip or Chew Tobacco: No; Tobacco Cessation Education Requested by Patient: No Hx Alcohol Use: No Hx Substance Use: Yes Prescribed Medications: Former Misuse of Rx Meds, Opiates and Other Prescribed Medications Comment: methadone, 100mg/day - [facility] - [place]. Non-Prescribed Medications: Crack / Cocaine, IV Drugs, Marijuana and Other Non-Prescribed Medications Comment: street fentanyl pills Last Used Substance: Days (ago) Last Used Substance Other:: 08/07/2020 Substance Use Type Other:: fentanyl Preferred Language: Turkmen Chaperone Required: No marital status: Single Current Living Situation: Parent Current Living Situation Comment: lives in [place] Other Information That Helps Us Care for You: No Feels Safe at Home: Yes Safety Concerns: Feels Safe At This Time Assistive Devices: Glasses Physical Exam Psychiatric: Orientation: alert, oriented x 3 and cooperative Apperance: appropriately dressed, appropriately groomed and appeared stated age Petite- appearing female, seated cross-legged on bed appearing anxious but in no acute distress. Pt is appropriately dressed for clinical setting, wearing a hospital gown. Hair is neatly styled in a high bun. Several piercings and tattoos. Overall level of hygiene and grooming are adequate. Eye Contact: good eye contact Motor Behavior: no abnormal motor movements (observed while sitting on bed) Speech: normal rate/rhythm/volume of speech Affect: + anxious affect (though seems to be productive/motivating anxiety) Mood: + anxious mood (related to WD symptoms and making discharge arrangements); no depressed mood Thought Process: goal directed thought process and clear/coherent thought process Thought Content: reality based without delusio ns; no hopelessness and no worthlessness Suicidal Thoughts: denies suicidal thoughts, denies suicidal plan and denies suicidal intent Homicidal Thoughts: denies homicidal thoughts Hallucinations: no auditory hallucinations and no visual hallucinations Cognition: attention grossly intact and language grossly intact Estimated Intelligence: consistent with education level Insight: + fair insight Judgement: + fair judgement Vital Signs (Past 24 Hours): Last Vital Signs Temp 37.2 C 08/12/20 08:30 Pulse 88 08/12/20 08:30 Resp 19 08/12/20 08:30 BP 111/73 08/12/20 08:30 Pulse Ox 99 08/12/20 08:30 Review of Systems Constitutional: denied Cardiovascular: denied Respiratory: denied Gastrointestinal: denied Neurological: denied Psychiatric: denies symptoms other than stated above Total of at least 10 systems reviewed, pertinent positives as above and in HPI. Results & Data (PSY) Medications Administered Clonazepam (Clonazepam 1 Mg Tab) 2 mg PO DAILY ORALIA Stop: 09/11/20 08:59 Last Admin: 08/12/20 08:20 Dose: 2 mg Documented by: [id number] Potassium Chloride/Dextrose/Sod Cl (D5nss + 20meq Kcl) 20 meq in 1,000 mls @ 100 mls/hr IV .Q10H [facility] Stop: 09/10/20 22:59 Last Admin: 08/12/20 00:23 Dose: 100 mls/hr Documented by: [id number] Ceftriaxone Sodium 1,000 mg/ (Dextrose) 50 mls @ 100 mls/hr IV Q24H ORALIA; Protocol Stop: 08/16/20 22:59 Last Infusion: 08/12/20 00:29 Dose: 0 mls/hr Documented by: [id number] Admin: 08/12/20 00:00 Dose: 100 mls/hr Documented by: [id number] Lorazepam (Ativan) 1 mg in 2 mls @ 2 mls/min IV Q6H PRN PRN Reason: anxiety Stop: 09/11/20 00:10 Last Admin: 08/12/20 00:29 Dose: 2 mls/min Documented by: [id number] Ketorolac Tromethamine (Ketorolac Tromethamine 15 Mg/Ml Vial) 15 mg IV Q6H PRN PRN Reason: Pain Stop: 08/17/20 00:34 Last Admin: 08/12/20 01:19 Dose: 15 mg Documented by: [id number] Methadone HCl (Methadone Hcl 10 Mg Tab) 100 mg PO QAM [facility] Stop: 08/26/20 08:59 Last Admin: 08/12/20 08:21 Dose: 100 mg Documented by: [id number] Nicotine (Nicotine 21 Mg/24 Hr Tdsy) 21 mg TD QAM [facility] Stop: 09/10/20 19:14 Last Admin: 08/12/20 08:24 Dose: 21 mg Documented by: [id number] Admin: 08/11/20 19:25 Dose: 21 mg Documented by: [id number] Ondansetron HCl (Ondansetron Inj 2 Mg/Ml 2 Ml Vial) 4 mg IV Q6H PRN PRN Reason: Nausea Stop: 09/10/20 22:52 Last Admin: 08/12/20 00:23 Dose: 4 mg Documented by: [id number] Trazodone HCl (Trazodone Hcl 50 Mg Tab) 50 mg PO HS PRN PRN Reason: insomnia Stop: 09/11/20 20:59 Last Admin: 08/12/20 01:19 Dose: 50 mg Documented by: [id number] Coding Level of Care Code 02968 [facility] Intl Hosp Care Lvl 2 Diagnoses Polysubstance abuse F19.10
--- NOTE | 2020-08-12 14:20 | Electrocardiogram Report ---
Test Reason : Blood Pressure : / mmHG Vent. Rate : 054 BPM Atrial Rate : 054 BPM P-R Int : 132 ms QRS Dur : 092 ms QT Int : 468 ms P-R-T Axes : 036 020 031 degrees QTc Int : 443 ms Sinus bradycardia with sinus arrhythmia Incomplete right bundle branch block T wave abnormality, consider anterior ischemia Abnormal ECG When compared with ECG of 11-AUG-2020 11:49, No significant change was found Confirmed by Philip Lane ([id number]) on 08/12/2020 2:20:35 PM Referred By: REFERRED SELF Confirmed By:Philip Lane
--- NOTE | 2020-08-15 22:43 | Discharge Summary ---
Date of Service August 12, 2020 Admission HPI Per Admitting Provider 25yo female with h/o previous IV drug abuse, stopped in September 2019; methadone maintenance with 100mg/day since September 2019 - follows with [facility] in [place]; daily crack-cocaine abuse; daily fentanyl use obtained from the street; anxiety; depression; and endometriosis who presents with withdrawal symptoms starting Saturday. Patient had received numerous medications for her symptoms upon ED arrival and she was very lethargic making it difficult to get history. However, she was able to tell me that her last cocaine use was Saturday night, and last methadone/fentanyl use was Saturday on [facility]. She said that she has been depressed and realized that she would ultimately from the drug abuse and therefore decided to stop everything. Since Saturday she has had nausea, vomiting, poor appetite, chills/goose bumps/feeling cold, myalgias, restlessness, agitation, diarrhea, and anxiety. She states she wants to stop the street drugs but wishes to continue the methadone. States that suboxone "made her sick" and doesn't want to go on this. Started abusing narcotics when she was being treated for her severe endometriosis in the past. LMP - 3 days ago. Lastly, I asked Teresita if she has ever been diagnosed with bipolar disorder or other mental health problems. She reported diagnoses of depression & anxiety. When asked if she has had suicidal ideation she responded yes. Asked if those suicidal thoughts were recent again she responded yes. She would not elaborate further on the suicidal thoughts. Principal Diagnosis Narcotic Withdrawal Discharge Exam Constitutional: awake; no acute distress Neck: trachea midline, no thyromegaly Respiratory: normal respiratory effort, lungs clear to auscultation Cardiovascular: Rate/Rhythm: regular rate and regular rhythm Heart Sounds: normal S1 and normal S2; no murmur Vessels: posterior tibial pulses present and dorsalis pedis pulses present; no JVD Extremities: no edema Gastrointestinal (Abdomen): normal bowel sounds, soft, nontender, no hepatosplenomegaly Musculoskeletal: Extremities: no clubbing Skin: dry, multiple tattoos Neurologic: no motor deficits Psychiatric: Orientation: awake Lymphatic: no cervical lymphadenopathy Discharge Data Allergies Allergy/AdvReac Type Severity Reaction Status Date / Time No Known Allergies Allergy Unverified 02/08/16 17:08 Consultations 08/11/20 12:50 ED Decision to Admit Stat 08/11/20 22:53 Consult Psychiatry Routine Hospital Course (1) Narcotic withdrawal: Patient follows with [facility] called Felice Quintero MD ([phone]). I called and spoke with the office; they confirmed that the patient began methadone Rx in 10/2019. She indeed is on 100mg/day. On 08/04/20 she received 100mg in the clinic. She was then given 4 doses of 100mg each to take for the following 4 days. She stopped her methadone this past Saturday. During the visit she stated she wished to go back on the methadone and stop her withdrawal. Methadone 100mg PO x 1 ordered shortly after my assessment. Then will continue 100mg daily starting in am. I spoke with our on-call lead painter who recommended the above. It will take several days for all withdrawal symptoms to resolve. In meantime - loperamide prn diarrhea, anti-emetics, clonidine prn, etc. She is also purchasing fentanyl off the streets in [place]. On discharge: Was seen by psychiatry RECOMMENDATIONS: 08/12/20 - Psychiatric consultation requested by our hospitalist service to evaluate patient. She was admitted on a 302 warrant due to verbalizing suicidal statements in the setting of polysubstance withdrawal. - Pt was initially evaluated in conjunction with Dr. Moralez, who will sign off to overturn the 302 warrant. Pt is requesting discharge to pursue follow-up with her methadone clinic and then subsequently detox facilities for long-term inpatient D&A treatment. Pt is future oriented and actively calling to make these arrangements. She is denying SI at this time, stating the statements were made out of frustration due to discomfort with withdrawal symptoms and the perception she was being mistreated by staff at the [facility] prior to being brought to the ED by EMS. Pt denies SI/HI, A/V hallucinations, paranoia, delusions and any safety concerns that would meet criteria for involuntary psychiatric commitment. She verbalized a safety plan, was willing for communication with her methadone clinic, and was cooperative and forthcoming during interview. Pt reports motivation to follow up with a detox facility and will be returning to [place] to her father initially, and then back to [place] with her mother until admission to a detox/rehab facility can be arranged. - Pt states she was not on any psychiatric medications prior to her admission. She would like to resume outpatient psychiatric treatment at some point in the future, but is currently motivated to address her substance abuse first. This plan certainly seems appropriate for the time being. Would not suggest that patient be discharged on any controlled substance due to active substance abuse behavior. - Appreciate the opportunity to participate in the care of this patient. Please reach out to our service with any additional questions or updates. Pt did sign an JEFFREY to allow coordination of care with her methadone clinic, and psychiatric consultation will be faxed to them at her request. Ok to discharge, discussed with patient who agrees with plan. (2) Methadone maintenance therapy patient: see above (3) Fentanyl dependence: Illicit fentanyl use - purchasing fentanyl off the street and taking daily. She previously misused oxycodone several years ago when she had significant pain related to her endometriosis. (4) Cocaine abuse: Crack use, daily. Last use was this past Saturday. She previously used IV drugs up until September 2019. IV heroin? IV cocaine? Other? (5) History of marijuana use: Tox screen here + for THC along with cocaine (6) Depression: In light of suicidal ideation will place on suicide watch and 1:1. Psych consult requested. I called and spoke with psych liaison regarding the patient. Hold wellbutrin - dose uncertain. treated with klonipin to avoid withdrawal. (7) Endometriosis: s/p multiple laparoscopies in the past. Used narcotics for pelvic pain related to endometriosis several years ago. Urine HCG neg. LMP several days ago. (8) Anxiety: Severe. Received ativan in ER prior to my arrival. Place her back on her klonipin daily. (9) Chest pain: EKG is concerning given her cocaine abuse. She could be having ischemia from the cocaine. Troponin checked and negative. Will obtain echo - r/o depressed EF, wall motion abnormalities, etc. Place on telemetry. (10) Hypokalemia: replaced (11) Abnormal EKG: Diffuse ST segment flattening. See "Chest pain" above. (12) Hx of intravenous drug use in remission: None since 09/2019 per patient. Total Time Total Time Spent Total Time Spent (In Minutes): 32 Total Time Includes: Examination of the Patient, Discharge Planning, Medication Reconciliation and Communication With Other Providers Discharge Plan Discharge Items Patient Disposition: Home - Self-Care Reason For Visit: NARCOTIC WITHDRAWAL,POLYSUBSTANCE ABUSE,SUICIDAL Discharge Diagnosis: Narcotic withdrawal, polysubstance, abuse, suicidal Condition on Discharge: Fair Activity: Resume your previous activity Non-emergency contact: Primary Care Provider Call non-emergency contact if: you have any medication questions Follow-up/Referrals: PCP,NO [Primary Care Provider] - Diet: Regular Addtl Attending Provider Instructions: Followup at methadone clinic. Please abstain from substances that are not obtained by your Methadone clinic. Pending Studies at Discharge: No Stand-Alone Forms: My [facility] Protein Bar, Smoking Cessation Medications and DC Order Prescriptions: Discontinued BUPROPION HCL (WELLBUTRIN) 75 MG tablet PO QAM Qty: 0 RF: 0 Clonazepam (Klonopin) 1 MG tablet 2 mg PO DAILY Qty: 0 RF: 0 Discharge Orders: Discharge Order (Routine); Ordered 08/12/20 Ordered By: Arron Marquez Admission Data Admit Date/Time: 08/11/20 14:28 Attending Provider: Arron Marquez Admit Provider: Emery Larkin Primary Care Provider: PCP,NO Other Providers: Emery Larkin ; Britt Nicole Other Interventions: Discharge Summary Assessment (RN) Last Done: 08/12/20 10:44 Coding Level of Care Code D/C Day Management >30 mins Diagnoses Narcotic withdrawal F11.23 Methadone maintenance therapy patient F11.20 Fentanyl dependence F11.20 Cocaine abuse F14.10 History of marijuana use Z87.898 Depression F32.89 Depression Type: other depression Endometriosis N80.9 Anxiety F41.9 Chest pain R07.9 Chest pain type: unspecified Hypokalemia E87.6 Abnormal EKG R94.31 Hx of intravenous drug use in remission Z87.898
[2020-08-16 01:16] LABS: Cocaine, Urine 597 ng/mL (<100); Marijuana Quant, GCMS Urine 261 ng/mL (<5); Methadone, Ur Metabolite 5330 ng/mL (<100)
== END 2020-08-12 11:10 | disposition home or self-care (01) | DRG 897 ==
LOC: ED 09:49 → EDINP 14:28 → SUATTDRO 14:28 → 2S 22:54